=== PATIENT | male | born 1970 | race Two or more races ===

== ENCOUNTER 2017-01-15 17:27 | Emergency (ER) | payer OTHER ==
[2017-01-15 17:54] VITALS: BP 157/90
[2017-01-15] MEDS ORDERED: Penicillin VK TAB* 250 MG PO ONE (18:06)
[2017-01-15] MEDS ORDERED: HYDROcodone/ACETAMIN 5-325 MG* 1 TAB PO ONE (18:06)
--- NOTE | 2017-01-15 18:12 | UC ---
Dental HPI - HPI Summary HPI Summary: 46 yo male with left upper molar pain and gum swelling x 3 days no f/c has appt to see dentist in one week sent here for pain management - History of Current Complaint Chief Complaint: UCDentalProblem Stated Complaint: TOOTH PAIN Time Seen by Provider: 01/15/17 17:49 Hx Obtained From: Patient Onset/Duration: Sudden Onset Severity: Severe Pain Intensity: 9 Pain Scale Used: 0-10 Numeric Aggravating: Heat, Cold, Chewing Alleviating: Nothing Related History: Previous Dental Care on Same Tooth, Swelling - Allergies/Home Medications Allergies/Adverse Reactions: Allergies Allergy/AdvReac Type Severity Reaction Status Date / Time No Known Allergies Allergy Verified 01/15/17 17:54 Home Medications: Home Medications Clonazepam [Clonazepam Odt] 3 mg PO BEDTIME 01/15/17 [History Confirmed 01/15/17 ] Methylphenidate HCl [Ritalin] 1 tab PO BID 01/15/17 [History Confirmed 01/15/17] PMH/Surg Hx/FS Hx/Imm Hx Endocrine History Of: Denies: Diabetes Cardiovascular History Of: Reports: Hypertension Denies: Pacemaker/ICD Respiratory History Of: Reports: Asthma GI/ History Of: Reports: Gastrointestinal Bleed Denies: Renal Disease Psychological History Of: Reports: Anxiety, Depression - Surgical History Surgical History: Yes Surgery Procedure, Year, and Place: Pilonidal cyst 2011 [facility] [place]. cyst removal from top of head 2004 [place]. right leg vein removal 07/22/2012 [facility] - Family History Known Family History: Positive: Cardiac Disease, Hypertension, Diabetes - Social History Alcohol Use: None Substance Use Type: None Smoking Status (MU): Light Every Day Tobacco Smoker Amount Used/How Often: 2 cig/day Household Exposure Type: Cigarettes Review of Systems Constitutional: Negative Skin: Negative Eyes: Negative ENT: Dental Pain Respiratory: Negative Cardiovascular: Negative Gastrointestinal: Negative Genitourinary: Negative Motor: Negative Neurovascular: Negative Musculoskeletal: Negative Neurological: Negative Psychological: Negative All Other Systems Reviewed And Are Negative: Yes Physical Exam Triage Information Reviewed: Yes Appearance: Well-Appearing, Well-Nourished, Pain Distress Vital Signs: Initial Vital Signs Temp 98.9 F 01/15/17 17:49 Pulse 100 01/15/17 17:49 Resp 18 01/15/17 17:49 BP 157/90 01/15/17 17:49 Pulse Ox 96 01/15/17 17:49 Vital Signs Reviewed: Yes Eyes: Positive: Conjunctiva Clear ENT: Positive: Normal ENT inspection, Hearing grossly normal. Negative: Nasal congestion, Nasal drainage, TMs normal, Tonsillar swelling, Tonsillar exudate, Trismus, Muffled/hoarse voice Dental: Positive: Other: - see image Neck: Positive: Supple, Nontender, No Lymphadenopathy Respiratory: Positive: Lungs clear, Normal breath sounds, No respiratory distress, No accessory muscle use Cardiovascular: Positive: RRR, No Murmur, Pulses Normal Neurological: Positive: Alert Psychological Exam: Normal Skin Exam: Normal Dental Complaint Course/Dx - Differential Dx/Diagnosis Provider Diagnoses: dental abscess Discharge - Discharge Plan Condition: Stable Disposition: HOME Prescriptions: HYDROcodone/ACETAMIN 5-325 MG* [[place] 5-325 TAB*] 1 tab PO Q4H PRN #15 tab MDD 6 PRN Reason: Pain Penicillin VK TAB 500 MG(NF) [Penicillin VK 500 mg Tab(NF)] 500 mg PO QID #28 tab Patient Education Materials: Dental Abscess (ED) Referrals: Kenneth Bowie MD [Primary Care Provider] - Additional Instructions: If symptoms worsen I suggest you go to the ER Hold off on taking anymore ibuprofen In a day or two you can take 600mg 4x day with food as needed for pain see dentist as planned Images Dental: 1 - gum swollen/percussion tenderness
== END 2017-01-15 18:40 | disposition home or self-care (01) ==
LOC: UCEAST 17:27
DX: K04.7 Periapical abscess without sinus (principal); I10 Essential (primary) hypertension; J45.909 Unspecified asthma, uncomplicated; F41.9 Anxiety disorder, unspecified; F32.9 Major depressive disorder, single episode, unspecified; F17.210 Nicotine dependence, cigarettes, uncomplicated
CPT/HCPCS: 99212; A9270-GY; G0463

== ENCOUNTER 2017-01-22 14:40 | Emergency (ER) | payer OTHER ==
[2017-01-22 14:53] VITALS: BP 147/80
--- NOTE | 2017-01-22 15:26 | UC ---
UC Dental HPI - HPI Summary HPI Summary: complaint of dental pain that started 2 weeks ago tooth infected in upper left jaw broken tooth and started to get infection seen in [facility] 7 days ago and started on PCN and given norco /NSAIDS for pain had appt today but dentist was out of the office and made an appt for 02/01/17 took approx 1/2 course of Penicillin d/t rash that started 3 days after medication - rash is resolving - denies any difficulty breath or swelling in his throat took hydrocodone with some relief until rx ran out tooth is extremely painful and difficult to eat- drinking with a straw pain is constant throbbing stabbing pain taking acetaminophen without relief for 2 days - History of Current Complaint Chief Complaint: UCDentalProblem Stated Complaint: DENTAL ISSUE Time Seen by Provider: 01/22/17 15:03 Hx Obtained From: Patient - Allergies/Home Medications Allergies/Adverse Reactions: Allergies Allergy/AdvReac Type Severity Reaction Status Date / Time Penicillins Allergy Hives Verified 01/22/17 15:27 PMH/Surg Hx/FS Hx/Imm Hx Previously Healthy: Yes Endocrine History Of: Denies: Diabetes, Thyroid Disease Cardiovascular History Of: Reports: Hypertension Denies: Cardiac Disorders, Pacemaker/ICD Respiratory History Of: Reports: Asthma Denies: COPD GI/ History Of: Reports: Gastrointestinal Bleed Denies: Ulcer, Renal Disease Psychological History Of: Reports: Anxiety, Depression - Surgical History Surgical History: Yes Surgery Procedure, Year, and Place: Pilonidal cyst 2011 [facility] – [place]. cyst removal from top of head 2004 [place]. right leg vein removal 07/22/2012 [facility] - Family History Known Family History: Positive: Cardiac Disease, Hypertension, Diabetes - Social History Occupation: Employed Full-time Lives: With Family Alcohol Use: None Substance Use Type: None Smoking Status (MU): Light Every Day Tobacco Smoker Amount Used/How Often: 2 cig/day Household Exposure Type: Cigarettes Review of Systems Constitutional: Negative Skin: Negative Eyes: Negative ENT: Dental Pain Respiratory: Negative Cardiovascular: Negative Gastrointestinal: Negative Genitourinary: Negative Motor: Negative Neurovascular: Negative Musculoskeletal: Negative Neurological: Headache Psychological: Negative All Other Systems Reviewed And Are Negative: Yes Physical Exam Triage Information Reviewed: Yes Appearance: Well-Nourished, Pain Distress, Obese Vital Signs: Initial Vital Signs Temp 98.2 F 01/22/17 14:46 Pulse 84 01/22/17 14:46 Resp 16 01/22/17 14:46 BP 147/80 01/22/17 14:46 Pulse Ox 97 01/22/17 14:46 Vital Signs Reviewed: Yes Eyes: Positive: Conjunctiva Clear ENT: Positive: Pharynx normal, TMs normal. Negative: Nasal congestion Dental: Positive: Percussion Tenderness @ - 16, Gross Decay/Caries @ - 16, Cervical Lymphadenopathy Neck: Positive: Supple Respiratory: Positive: Lungs clear, Normal breath sounds, No respiratory distress Cardiovascular: Positive: RRR, No Murmur, Pulses Normal Abdomen Description: Positive: Nontender, Soft Bowel Sounds: Positive: Present Musculoskeletal: Positive: No Edema Neurological: Positive: Alert Psychological Exam: Normal Skin: Positive: Other - scattered erythemoatous rash accross back torse and arms Dental Complaint Course/Dx - Course Course Of Treatment: exam completed. will start clindamycin and norco/NSAIDS for paincontrol until infection starts to resolve- has dental appt on 02/01/17. discussed calling to see if he can get a appt with dental provider sooner. will treat rash with benadryl to reduce itching. if pain worsenes or he gets a fever he was indstructed to be seen in the ED - Differential Dx/Diagnosis Differential Diagnosis/Dx: Dental Abscess, Dental Caries Provider Diagnoses: dental infection Discharge - Discharge Plan Condition: Stable Disposition: HOME Prescriptions: Clindamycin Cap(NF) [Cleocin 300 mg Cap(NF)] 300 mg PO TID #30 cap HYDROcodone/ACETAMIN 5-325 MG* [[place] 5-325 TAB*] 2 tab PO Q6H PRN #18 tab MDD 6 PRN Reason: Pain (Dental) Ibuprofen TAB* [Motrin TAB* 800 MG] 800 mg PO Q8H PRN #30 tab PRN Reason: Pain (Dental) diPHENhydraMINE PO* [Benadryl PO 50 MG CAP*] 50 mg PO TID PRN #30 cap PRN Reason: Itching Patient Education Materials: Dental Abscess (ED) Referrals: Kenneth Bowie MD [Primary Care Provider] - Additional Instructions: Please take antibiotic and benadryl as directed Increase fluids and rest Take pain medication as prescribed then start ibuprofen as directed Keep dental appt but call tomorrow to see if you can get an appt sooner Please review your discharge instructions. If your symptoms do not improve please proceed to the emergency department for further evaluation Your blood pressure is elevated. Please contact your primary care provider within 1 day -4 weeks for further evaluation
[2017-01-22] MEDS ORDERED: HYDROcodone/ACETAMIN 5-325 MG* 1 TAB PO ONE (15:31)
== END 2017-01-22 15:58 | disposition home or self-care (01) ==
LOC: UCEAST 14:40
DX: K04.7 Periapical abscess without sinus (principal); K02.9 Dental caries, unspecified; I10 Essential (primary) hypertension; J45.909 Unspecified asthma, uncomplicated; F17.210 Nicotine dependence, cigarettes, uncomplicated; K21.9 Gastro-esophageal reflux disease without esophagitis
CPT/HCPCS: 99212; G0463

== ENCOUNTER 2017-04-23 14:58 | Emergency (ER) | payer MEDICARE, MEDICAID | END 2017-04-23 15:45 | disposition left against medical advice (07) | LOC: UCEAST 14:58 | DX: M54.2 Cervicalgia (principal); Z53.21 Procedure and treatment not carried out due to patient leaving prior to being seen by health care provider ==

== ENCOUNTER 2017-04-23 21:33 | Emergency (ER) | payer OTHER | END 2017-04-23 21:34 | disposition left against medical advice (07) | LOC: UCEAST 21:33 | DX: Z53.21 Procedure and treatment not carried out due to patient leaving prior to being seen by health care provider (principal) ==

== ENCOUNTER 2017-04-25 16:29 | Emergency (ER) | payer MEDICARE, MEDICAID ==
[2017-04-25] MEDS ORDERED: Ondansetron INJ* 2 MG/ML VIAL IV ONE (16:56)
[2017-04-25] MEDS ORDERED: Dexamethasone IV* 4 MG/ML 1 ML (4 MG) IV SLOW PU ONE (16:56)
[2017-04-25] MEDS ORDERED: Morphine INJ* 4 MG/ML 1 ML SYRINGE IV ONE (16:56)
[2017-04-25] MEDS ORDERED: Ketorolac INJ* 30 MG/ML 1 ML VIAL IV PUSH ONE (16:56)
--- NOTE | 2017-04-25 17:59 | RAD ---
HISTORY: Left shoulder pain COMPARISONS: None VIEWS: 4, Frontal internal rotation, external rotation, outlet, and axillary views of the left shoulder FINDINGS: BONE DENSITY: Normal. BONES: There is no displaced fracture. 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 SOFT TISSUES: Unremarkable. OTHER FINDINGS: None. IMPRESSION: NO ACUTE OSSEOUS INJURY. IF SYMPTOMS PERSIST, RECOMMEND REPEAT IMAGING.
--- NOTE | 2017-04-25 18:00 | RAD ---
HISTORY: Upper chest pain COMPARISONS: None VIEWS: 4: Frontal dual-energy and lateral views of the chest. FINDINGS: CARDIOMEDIASTINAL SILHOUETTE: The cardiomediastinal silhouette is normal. SOLEDAD: The soledad are normal. PLEURA: The costophrenic angles are sharp. No pleural abnormalities are noted. LUNG PARENCHYMA: The lungs are clear. ABDOMEN: The upper abdomen is clear. There is no subphrenic gas. BONES AND SOFT TISSUES: No bone or soft tissue abnormalities are noted. OTHER: None. IMPRESSION: NO ACTIVE CARDIOPULMONARY DISEASE.
[2017-04-25 18:52] VITALS: BP 136/74
--- NOTE | 2017-04-25 18:56 | ED ---
Tad Dent Alfonso, scribed for Kenneth Mane MD on 04/25/17 at 1701 . Complex/Multi-Sys Presentation - HPI Summary HPI Summary: This patient is a 46 year old M BIBA to [facility] with a chief complaint of left shoulder pain since two days ago. Pt rates the pain 9/10 in severity. Symptoms aggravated by touch and alleviated by nothing. Pt reports cough, near syncope, and insomnia. PMHx of HTN, low back pain, anxiety, and depression. - History Of Current Complaint Chief Complaint: EDExtremityUpper Time Seen by Provider: 04/25/17 16:45 Hx Obtained From: Patient Onset/Duration: Sudden Onset, Lasting Days - 2, Still Present Timing: Constant Severity Currently: Severe Severity Initially: Severe Location: Pain At: - Left shoulder pain Aggravating Factor(s): Touch Alleviating Factor(s): Nothing. Associated Signs And Symptoms: Positive: Other - Positive cough, near syncope, and insomnia - Allergies/Home Medications Allergies/Adverse Reactions: Allergies Allergy/AdvReac Type Severity Reaction Status Date / Time Penicillins Allergy Hives Verified 01/22/17 15:27 PMH/Surg Hx/FS Hx/Imm Hx Endocrine/Hematology History: Denies: Hx Diabetes, Hx Thyroid Disease Cardiovascular History: Reports: Hx Hypertension, Other Cardiovascular Problems/ Disorders - varicose veins Denies: Hx Pacemaker/ICD Respiratory History: Reports: Hx Asthma, Hx Sleep Apnea - using CPAP Denies: Hx Chronic Obstructive Pulmonary Disease (COPD) GI History: Reports: Hx Gastroesophageal Reflux Disease, Hx Gastrointestinal Bleed Denies: Hx Ulcer History: Denies: Hx Dialysis, Hx Renal Disease Musculoskeletal History: Reports: Hx Back Problems - low back pain Sensory History: Reports: Hx Hearing Problem Denies: Hx Hearing Aid Neurological History: Reports: Hx Headaches Psychiatric History: Reports: Hx Anxiety, Hx Depression, Other Psychiatric Issues/Disorders - insomnia Denies: Hx Panic Disorder - Surgical History Surgery Procedure, Year, and Place: Pilonidal cyst 2011 [facility] [place]. cyst removal from top of head 2004 [place]. right leg vein removal 07/22/2012 [facility] Infectious Disease History: Denies: Hx Clostridium Difficile, Hx Hepatitis, Hx Human Immunodeficiency Virus (HIV), Hx of Known/Suspected MRSA, Hx Shingles, Hx Tuberculosis, Hx Known/ Suspected VRE, Hx Known/Suspected VRSA, History Other Infectious Disease, Traveled Outside the [place] in Last 30 Days - Family History Known Family History: Positive: Cardiac Disease, Hypertension, Diabetes - Social History Alcohol Use: None Substance Use Type: Reports: None Smoking Status (MU): Light Every Day Tobacco Smoker Amount Used/How Often: 2 cig/day Review of Systems Positive: Cough Positive: Other - Positive left shoulder pain Neurological: Other - Positive insomnia and near syncope. All Other Systems Reviewed And Are Negative: Yes Physical Exam - Summary Physical Exam Summary: VITAL SIGNS: Reviewed. GENERAL: Patient is a well-developed and nourished male who is lying comfortable in the stretcher. Patient is not in any acute respiratory distress. HEAD AND FACE: No signs of trauma. No ecchymosis, hematomas or skull depressions. No sinus tenderness. EYES: PERRLA, EOMI x 2, No injected conjunctiva, no nystagmus. EARS: Hearing grossly intact. Ear canals and tympanic membranes are within normal limits. MOUTH: Oropharynx within normal limits. NECK: Left upper paraspinal muscle tenderness. Left external sternocleidomastoid and trapezius tenderness. CHEST: Symmetric, no tenderness at palpation LUNGS: Clear to auscultation bilaterally. No wheezing or crackles. CVS: Regular rate and rhythm, S1 and S2 present, no murmurs or gallops appreciated. ABDOMEN: Soft, non-tender. No signs of distention. No rebound no guarding, and no masses palpated. Bowel sounds are normal. EXTREMITIES: FROM in all major joints, no edema, no cyanosis or clubbing. NEURO: Alert and oriented x 3. No acute neurological deficits. Speech is normal and follows commands. SKIN: Dry and warm Triage Information Reviewed: Yes Vital Signs On Initial Exam: Initial Vitals Temp Pulse Resp BP Pulse Ox 98.4 F 90 22 154/99 97 04/25/17 16:40 04/25/17 16:40 04/25/17 16:40 04/25/17 16:40 04/25/17 16:40 Vital Signs Reviewed: Yes Diagnostics - Vital Signs Vital Signs Temp Pulse Resp BP Pulse Ox 04/25/17 16:40 98.4 F 90 22 154/99 97 - Laboratory Lab Statement: Any lab studies that have been ordered have been reviewed, and results considered in the medical decision making process. - Radiology CXR Radiology Interpretation Completed By: Radiologist - NO ACTIVE CARDIOPULMONARY DISEASE. Shoulder X-Ray Radiology Interpretation Completed By: Radiologist - NO ACUTE OSSEOUS INJURY. IF SYMPTOMS PERSIST, RECOMMEND REPEAT IMAGING. Re-Evaluation - Re-Evaluation First Eval Re-Evaluation Time: 18:01 Comment: Pt is feeling a lot better. Complex Multi-Symp Course/Dx Course Of Treatment: This patient is a 46 year old M BIBA to [facility] with a chief complaint of left shoulder pain since two days ago. Pt rates the pain 9/10 in severity. Symptoms aggravated by touch and alleviated by nothing. Pt reports cough, near syncope, and insomnia. PMHx of HTN, low back pain, anxiety, and depression. Assessment/Plan: Shoulder X-Ray reveals NO ACUTE OSSEOUS INJURY. IF SYMPTOMS PERSIST, RECOMMEND REPEAT IMAGING. CXR reveals NO ACTIVE CARDIOPULMONARY DISEASE. I believe his symptoms are secondary to a muscle spasm. Patient was given Decadron, Toradol, morphine, and Zofran for the pain. After this medication his symptoms improved. Pain is 2/10 in severity and he is able to move his neck and shoulders with full ROM. Patient will be discharged home with PCP follow up. Patient is hemodynamically stable and A&Ox3. Patient denies any CP, SOB or palitations. I discussed all the findings and test results with the patient. Patient was instructed to return to the emergency room immediately if any of the symptoms return or worsens. Plan of care was discussed with the patient and understands and agrees. All questions were answered at patient satisfaction. There were no further complaints or concerns. Lung exam before discharge: CTA B/L. Good air exchange. No wheezing or crackles heard. CVS: S1 and S2 present. No murmurs appreciated. Patient is alert and oriented x 3. Patient is hemodynamically stable. Patient will be discharged home with follow up PCP in the next 2-3 days - Diagnoses Provider Diagnoses: Torticollis Discharge - Discharge Plan Condition: Stable Disposition: HOME Prescriptions: Ibuprofen TAB* [Motrin TAB* 800 MG] 800 mg PO ONCE PRN #30 tab PRN Reason: Pain Methocarbamol [Robaxin-750 MG TAB] 750 mg PO TID #12 tab Oxycodone/AS[place] 5/325 (NF) [Percodan 5/325 (NF)] 1 tab PO Q6H PRN #10 tab MDD 4 PRN Reason: Pain Patient Education Materials: Spasmodic Torticollis (ED) Referrals: Kenneth Bowie MD [Primary Care Provider] - 3 Days The documentation as recorded by the Tad connor Alfonso accurately reflects the service I personally performed and the decisions made by , Kenneth Mane MD.
== END 2017-04-25 18:51 | disposition home or self-care (01) ==
LOC: ED 16:29
DX: M43.6 Torticollis (principal); R05 Cough; R55 Syncope and collapse; G47.00 Insomnia, unspecified; I10 Essential (primary) hypertension; J45.909 Unspecified asthma, uncomplicated; K21.9 Gastro-esophageal reflux disease without esophagitis; M54.5 Low back pain; F41.9 Anxiety disorder, unspecified; F32.9 Major depressive disorder, single episode, unspecified; Z88.0 Allergy status to penicillin; F17.210 Nicotine dependence, cigarettes, uncomplicated
CPT/HCPCS: 71020; 99282; J1100; J1885; J2270; J2405

== ENCOUNTER → 2017-05-13 00:49 | Emergency (ER) | payer MEDICARE, MEDICAID ==
[2017-05-13 01:05] VITALS: BP 170/101
[2017-05-13 01:28] LABS: Hematocrit 44 % (42-52); Hemoglobin 14.2 g/dl (14.0-18.0); Mean Corpuscular HGB Conc 33 g/dl (31-36); Mean Corpuscular Hemoglobin 28 pg (27-31); Mean Corpuscular Volume 86 fL (80-94); Mean Platelet Volume 8 um3 (7.4-10.4); Red Blood Count 5.05 10^6/ul (4.0-5.4); Red Cell Distribution Width 15 % (10.5-15); White Blood Count 13.4 10^3/ul (3.5-10.8)
[2017-05-13 01:41] LABS: Urine Bilirubin Negative (Negative); Urine Glucose Negative (Negative); Urine Nitrite Negative (Negative)
[2017-05-13 01:43] LABS: Acetaminophen < 15 mcg/mL; Alcohol < 10 mg/dL (<10); Salicylate < 2.50 mg/dL (<30)
[2017-05-13 01:44] LABS: ALT 18 U/L (7-52); AST 14 U/L (13-39); Albumin 4.2 g/dL (3.2-5.2); Alkaline Phosphatase 66 U/L (34-104); Anion Gap 7 mmol/L (2-11); BUN/Creatinine Ratio 13.5 (8-20); Blood Urea Nitrogen 12 mg/dL (6-24); CO2 Carbon Dioxide 23 mmol/L (22-32); Calcium 9.1 mg/dL (8.6-10.3); Chloride 108 mmol/L (101-111); EGFR African American 118.9 (>60); EGFR Non-African American 92.4 (>60); Globulin 3.1 g/dL (2-4); Glucose 112 mg/dL (70-100); Potassium 3.4 mmol/L (3.5-5.0); Sodium 138 mmol/L (133-145); Total Protein 7.3 g/dL (6.4-8.9)
[2017-05-13 01:46] LABS: Benzodiazepine Urine Screen Presumptive Positive (None Detect)
[2017-05-13 01:54] LABS: TSH (Thyroid Stimulating Horm) 0.41 mcIU/mL (0.34-5.60)
--- NOTE | 2017-05-13 06:17 | ED ---
I, Oh,Sylvia, scribed for Nasra Bassett MD on 05/13/17 at 0121 . 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 Pt was with his friend mayur and made joke that he "will drive off the bridge". 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 Pt admits to use of crack cocaine tonkyler. He is currently calm and cooperative. PMHx includes HTN and asthma. Pt lives with uncle and cousin. FHx is negative for depression. - History Of Current Complaint Chief Complaint: EDMentalHealth Time Seen by Provider: 05/13/17 01:08 Hx Obtained From: Patient, Medical Records Aggravating Factor(s): Nothing Alleviating Factor(s): Nothing Associated Signs And Symptoms: Positive: Negative - Allergies/Home Medications Allergies/Adverse Reactions: Allergies Allergy/AdvReac Type Severity Reaction Status Date / Time Penicillins Allergy Hives Verified 05/13/17 01:29 PMH/Surg Hx/FS Hx/Imm Hx Endocrine/Hematology History: Denies: Hx Diabetes, Hx Thyroid Disease Cardiovascular History: Reports: Hx Hypertension, Other Cardiovascular Problems/ Disorders - varicose veins Denies: Hx Pacemaker/ICD Respiratory History: Reports: Hx Asthma, Hx Sleep Apnea - using CPAP Denies: Hx Chronic Obstructive Pulmonary Disease (COPD) GI History: Reports: Hx Gastroesophageal Reflux Disease, Hx Gastrointestinal Bleed Denies: Hx Ulcer History: Denies: Hx Dialysis, Hx Renal Disease Musculoskeletal History: Reports: Hx Back Problems - low back pain Sensory History: Reports: Hx Hearing Problem Denies: Hx Hearing Aid Neurological History: Reports: Hx Headaches Psychiatric History: Reports: Hx Anxiety, Hx Depression, Other Psychiatric Issues/Disorders - insomnia Denies: Hx Panic Disorder - Surgical History Surgery Procedure, Year, and Place: Pilonidal cyst 2012 [facility] [place]. cyst removal from top of head 2004 [place]. right leg vein removal 07/22/2012 [facility] Infectious Disease History: No Infectious Disease History: Denies: Hx Clostridium Difficile, Hx Hepatitis, Hx Human Immunodeficiency Virus (HIV), Hx of Known/Suspected MRSA, Hx Shingles, Hx Tuberculosis, Hx Known/ Suspected VRE, Hx Known/Suspected VRSA, History Other Infectious Disease, Traveled Outside the [place] in Last 30 Days - Family History Known Family History: Positive: Cardiac Disease, Hypertension, Diabetes - Social History Alcohol Use: None Substance Use Type: Reports: Cocaine Smoking Status (MU): Light Every Day Tobacco Smoker Amount Used/How Often: 2 cig/day Review of Systems Negative: Fever Positive: Other - Positive statement for "joking that I will drive off the bridge" All Other Systems Reviewed And Are Negative: Yes Physical Exam Triage Information Reviewed: Yes Vital Signs On Initial Exam: Initial Vitals Temp Pulse Resp BP Pulse Ox 98.5 F 87 18 170/101 96 05/13/17 01:04 05/13/17 01:04 05/13/17 01:04 05/13/17 01:04 05/13/17 01:04 Vital Signs Reviewed: Yes Appearance: Positive: Well-Appearing, No Pain Distress Skin: Positive: Warm, Skin Color Reflects Adequate Perfusion, Dry Head/Face: Positive: Normal Head/Face Inspection Eyes: Positive: EOMI, LA Neck: Positive: Supple, Nontender Respiratory/Lung Sounds: Positive: Breath Sounds Present. Negative: Rales, Rhonchi Cardiovascular: Positive: RRR, Pulses are Symmetrical in both Upper and Lower Extremities. Negative: Murmur, Rub, Other - gallops Abdomen Description: Positive: Nontender, Soft Musculoskeletal: Positive: Strength/ROM Intact Neurological: Positive: Sensory/Motor Intact, Alert, Oriented to Person Place, Time Psychiatric: Positive: Affect/Mood Appropriate AVPU Assessment: Alert - Carla Coma Scale Coma Scale Total: 15 Diagnostics - Vital Signs Vital Signs Temp Pulse Resp BP Pulse Ox 05/13/17 01:04 98.5 F 87 18 170/101 96 - Laboratory Lab Results: Lab Results 05/13/17 05/13/17 05/13/17 Range/Units 01:15 01:15 01:15 WBC 13.4 H (3.5-10.8) 10^3/ul RBC 5.05 (4.0-5.4) 10^6/ul Hgb 14.2 (14.0-18.0) g/dl Hct 44 (42-52) % MCV 86 (80-94) fL MCH 28 (27-31) pg MCHC 33 (31-36) g/dl RDW 15 (10.5-15) % Plt Count 207 (150-450) 10^3/ul MPV 8 (7.4-10.4) um3 Neut % (Auto) 73.9 (38-83) % Lymph % (Auto) 17.8 L (25-47) % Pickett % (Auto) 6.2 (1-9) % Eos % (Auto) 1.1 (0-6) % Baso % (Auto) 1.0 (0-2) % Absolute Neuts (auto) 9.9 H (1.5-7.7) 10^3/ul Absolute Lymphs (auto) 2.4 (1.0-4.8) 10^3/ul Absolute Monos (auto) 0.8 (0-0.8) 10^3/ul Absolute Eos (auto) 0.1 (0-0.6) 10^3/ul Absolute Basos (auto) 0.1 (0-0.2) 10^3/ul Absolute Nucleated RBC 0 10^3/ul Nucleated RBC % 0 Sodium 138 (133-145) mmol/L Potassium 3.4 L (3.5-5.0) mmol/L Chloride 108 (101-111) mmol/L Carbon Dioxide 23 (22-32) mmol/L Anion Gap 7 (2-11) mmol/L BUN 12 (6-24) mg/dL Creatinine 0.89 (0.67-1.17) mg/dL Est GFR ( Amer) 118.9 (>60) Est GFR (Non-Af Amer) 92.4 (>60) BUN/Creatinine Ratio 13.5 (8-20) Glucose 112 H (70-100) mg/dL Calcium 9.1 (8.6-10.3) mg/dL Total Bilirubin 0.40 (0.2-1.0) mg/dL AST 14 (13-39) U/L ALT 18 (7-52) U/L Alkaline Phosphatase 66 (34-104) U/L Total Protein 7.3 (6.4-8.9) g/dL Albumin 4.2 (3.2-5.2) g/dL Globulin 3.1 (2-4) g/dL Albumin/Globulin Ratio 1.4 (1-3) TSH 0.41 (0.34-5.60) mcIU/mL Urine Color Yellow Urine Appearance Clear Urine pH 5.0 (5-9) Ur Specific [place] 1.027 (1.010-1.030) Urine Protein Negative (Negative) Urine Ketones Negative (Negative) Urine Blood Negative (Negative) Urine Nitrate Negative (Negative) Urine Bilirubin Negative (Negative) Urine Urobilinogen Negative (Negative) Ur Leukocyte Esterase Negative (Negative) Urine Glucose Negative (Negative) Salicylates < 2.50 (<30) mg/dL Urine Opiates Screen (None Detect) Acetaminophen < 15 mcg/mL Ur Barbiturates Screen (None Detect) Ur Phencyclidine Scrn (None Detect) Ur Amphetamines Screen (None Detect) U Benzodiazepines Scrn (None Detect) Urine Cocaine Screen (None Detect) U Cannabinoids Screen (None Detect) Serum Alcohol < 10 (<10) mg/dL 05/13/17 Range/Units 01:15 WBC (3.5-10.8) 10^3/ul RBC (4.0-5.4) 10^6/ul Hgb (14.0-18.0) g/dl Hct (42-52) % MCV (80-94) fL MCH (27-31) pg MCHC (31-36) g/dl RDW (10.5-15) % Plt Count (150-450) 10^3/ul MPV (7.4-10.4) um3 Neut % (Auto) (38-83) % Lymph % (Auto) (25-47) % Pickett % (Auto) (1-9) % Eos % (Auto) (0-6) % Baso % (Auto) (0-2) % Absolute Neuts (auto) (1.5-7.7) 10^3/ul Absolute Lymphs (auto) (1.0-4.8) 10^3/ul Absolute Monos (auto) (0-0.8) 10^3/ul Absolute Eos (auto) (0-0.6) 10^3/ul Absolute Basos (auto) (0-0.2) 10^3/ul Absolute Nucleated RBC 10^3/ul Nucleated RBC % Sodium (133-145) mmol/L Potassium (3.5-5.0) mmol/L Chloride (101-111) mmol/L Carbon Dioxide (22-32) mmol/L Anion Gap (2-11) mmol/L BUN (6-24) mg/dL Creatinine (0.67-1.17) mg/dL Est GFR ( Amer) (>60) Est GFR (Non-Af Amer) (>60) BUN/Creatinine Ratio (8-20) Glucose (70-100) mg/dL Calcium (8.6-10.3) mg/dL Total Bilirubin (0.2-1.0) mg/dL AST (13-39) U/L ALT (7-52) U/L Alkaline Phosphatase (34-104) U/L Total Protein (6.4-8.9) g/dL Albumin (3.2-5.2) g/dL Globulin (2-4) g/dL Albumin/Globulin Ratio (1-3) TSH (0.34-5.60) mcIU/mL Urine Color Urine Appearance Urine pH (5-9) Ur Specific [place] (1.010-1.030) Urine Protein (Negative) Urine Ketones (Negative) Urine Blood (Negative) Urine Nitrate (Negative) Urine Bilirubin (Negative) Urine Urobilinogen (Negative) Ur Leukocyte Esterase (Negative) Urine Glucose (Negative) Salicylates (<30) mg/dL Urine Opiates Screen None detected (None Detect) Acetaminophen mcg/mL Ur Barbiturates Screen None detected (None Detect) Ur Phencyclidine Scrn None detected (None Detect) Ur Amphetamines Screen Presumptive positive H (None Detect) U Benzodiazepines Scrn Presumptive positive H (None Detect) Urine Cocaine Screen Presumptive positive H (None Detect) U Cannabinoids Screen Presumptive positive H (None Detect) Serum Alcohol (<10) mg/dL Result Diagrams: 05/13/17 01:15 05/13/17 01:15 Lab Statement: Any lab studies that have been ordered have been reviewed, and results considered in the medical decision making process. Course/Dx - Course Course Of Treatment: Pt to be signed out to am attending - Differential Dx/Clinical Impression Provider Diagnosis: Suicidal behavior without attempted self-injury - Physician Notifications Patient Is Medically Stable For: Psych Evaluation - at 0207 AM Discharge - Discharge Plan Condition: Stable Disposition: OTHER Discharge Disposition Comment: to be determined The documentation as recorded by the Tello connor Soohyun accurately reflects the service I personally performed and the decisions made by me, Nasra Bassett MD.
--- NOTE | 2017-05-13 09:33 | ED ---
Tad Dent Alfonso, scribed for Kenneth Mane MD on 05/13/17 at 0904 . Progress - Progress Note Progress Note: This patient was signed out from Dr. Bassett, pending disposition, awaiting MHE. After MHE, Done by Dr. Allen he request for the patient to be discharged home with f/u as an outpatient for mental health. Patient's condition is stable and he will be discharged to home with Dx of adjustment disorder with depressed mood. - Consult/PCP Time Called: 02:36 Course/Dx - Diagnoses Provider Diagnoses: Adjustment disorder with depressed mood The documentation as recorded by the Tad connor Alfonso accurately reflects the service I personally performed and the decisions made by , Kenneth Maen MD.
== END ==
LOC: ED 00:49
DX: F43.21 Adjustment disorder with depressed mood (principal); F17.210 Nicotine dependence, cigarettes, uncomplicated; T14.91 Suicide attempt
CPT/HCPCS: 36415; 80053; 80307; 80320; 80329; 81003; 84443; 85025; 99284; G0480

== ENCOUNTER 2017-06-28 10:47 | Emergency (ER) | payer MEDICARE, MEDICAID ==
[2017-06-28] MEDS ORDERED: NS 0.9% 1000 ML* 1,000 ML IV ONE (11:34)
[2017-06-28] MEDS ORDERED: Ketorolac INJ* 30 MG/ML 1 ML VIAL IV ONE (11:34)
[2017-06-28 11:57] LABS: Hematocrit 41 % (42-52); Hemoglobin 13.7 g/dl (14.0-18.0); Mean Corpuscular HGB Conc 33 g/dl (31-36); Mean Corpuscular Hemoglobin 29 pg (27-31); Mean Corpuscular Volume 86 fL (80-94); Mean Platelet Volume 8 um3 (7.4-10.4); Red Blood Count 4.79 10^6/ul (4.0-5.4); Red Cell Distribution Width 14 % (10.5-15); White Blood Count 16.2 10^3/ul (3.5-10.8)
[2017-06-28 12:12] LABS: Albumin 3.8 g/dL (3.2-5.2); BUN/Creatinine Ratio 11.9 (8-20); C Reactive Protein 137.01 mg/L (< 5.00); Calcium 8.8 mg/dL (8.6-10.3); EGFR African American 102.7 (>60); EGFR Non-African American 79.9 (>60); Globulin 3.2 g/dL (2-4); Magnesium 2.1 mg/dL (1.9-2.7); Potassium 3.7 mmol/L (3.5-5.0)
--- NOTE | 2017-06-28 12:18 | RAD ---
INDICATION: LEFT lower quadrant abdominal pain which radiates to the back. Corresponding bruising without reported injury. COMPARISON: No relevant prior exams available on the [facility] PACS for comparison. TECHNIQUE: Multidetector CT images were obtained from the lung bases to the ischial tuberosities. Evaluation of the viscera is limited without IV contrast. Multiplanar reformation. REPORT: Unremarkable visualized inferior thorax. Unremarkable unenhanced liver, gallbladder, pancreas, spleen. Negative for CT abnormality of the upper GI, small bowel, retrocecal appendix. Centered at the diverticula there is perienteric inflammatory change at the mid descending colon at the paracolic gutter with potential few small foci of extra enteric gas as well as trace free fluid in the paracolic gutter. Additional scattered diverticula noted. Negative for hernias. 2 cm hypodense RIGHT adrenal nodule consistent with a benign lipid rich adenoma. Negative for urolithiasis or hydronephrosis. No conspicuous focal renal lesions evident. Mild LEFT perinephric fat stranding is likely reactive secondary to the primary inflammatory process at the descending colon. Unremarkable ureters and largely decompressed urinary bladder limiting assessment. Symmetric seminal vesicles. Negative for lymphadenopathy. Normal diameter abdominal aorta and iliac arteries. Physiologic distention of the IVC. Negative for suspicious osseous lesions. Negative for soft tissue plane edema or hematoma. IMPRESSION: The constellation of findings is most consistent with acute diverticulitis at the descending colon with suggestion of microperforation with a few adjacent foci of extra enteric gas and trace free fluid. No perienteric abscess collection evident. Negative for resulting bowel obstruction.
[2017-06-28] MEDS ORDERED: Morphine INJ* 4 MG/ML 1 ML CARPUJECT IV ONE (12:46)
[2017-06-28] MEDS ORDERED: Ondansetron INJ* 2 MG/ML VIAL IV ONE (12:46)
[2017-06-28] MEDS ORDERED: Ciprofloxacin 400MG IVPREMIX(* 400 MG/200 ML BAG IVPB ONE (12:46)
[2017-06-28] MEDS ORDERED: metroNIDAZOLE TAB* 250 MG PO ONE (12:46)
[2017-06-28 13:27] LABS: Urine Nitrite Negative (Negative)
[2017-06-28 13:28] LABS: Urine Bilirubin Negative (Negative); Urine Glucose Negative (Negative)
[2017-06-28 13:58] VITALS: BP 114/72
--- NOTE | 2017-06-28 18:35 | ED ---
Dontae Dent Angela, scribed for Kenneth Mane MD on 06/28/17 at 1131 . Abdominal Pain/Male - HPI Summary HPI Summary: This pt is a 46 y/o male presenting [facility] c/o left lower back pain that radiates to his LLQ. Pt denies any trauma to the area but reports ecchymosis. Pt notes that the last thing he ate was a chicken pizza. He states his pain is aggravated by movement and coughing. Pt denies LE numbness, tingling, or weakness, fever, chills, nausea, vomiting. - History of Current Complaint Chief Complaint: EDAbdPain Stated Complaint: LT BACK/SIDE PAIN/BRUISES Time Seen by Provider: 06/28/17 11:29 Hx Obtained From: Patient Onset/Duration: Sudden Onset Pain Intensity: 10 Pain Scale Used: 0-10 Numeric Location: Flank Radiates: Yes Radiates to: Back Aggravating Factor(s): Movement, Other: - coughing Associated Signs And Symptoms: Positive: Back Pain. Negative: Fever, Chest Pain , Dizzy, Nausea - Allergies/Home Medications Allergies/Adverse Reactions: Allergies Allergy/AdvReac Type Severity Reaction Status Date / Time Penicillins Allergy Hives Verified 05/13/17 01:29 PMH/Surg Hx/FS Hx/Imm Hx Endocrine/Hematology History: Denies: Hx Diabetes, Hx Thyroid Disease Cardiovascular History: Reports: Hx Hypertension, Other Cardiovascular Problems/ Disorders - varicose veins Denies: Hx Pacemaker/ICD Respiratory History: Reports: Hx Asthma, Hx Sleep Apnea - using CPAP Denies: Hx Chronic Obstructive Pulmonary Disease (COPD) GI History: Reports: Hx Gastroesophageal Reflux Disease, Hx Gastrointestinal Bleed Denies: Hx Ulcer History: Denies: Hx Dialysis, Hx Renal Disease Musculoskeletal History: Reports: Hx Back Problems - low back pain Sensory History: Reports: Hx Hearing Problem Denies: Hx Hearing Aid Neurological History: Reports: Hx Headaches Psychiatric History: Reports: Hx Anxiety, Hx Depression, Other Psychiatric Issues/Disorders - insomnia Denies: Hx Eating Disorder, Hx Panic Disorder - Surgical History Surgery Procedure, Year, and Place: Pilonidal cyst 2011 [facility]. cyst removal from top of head 2004 [place]. right leg vein removal 07/22/2012 [facility] Infectious Disease History: No Infectious Disease History: Denies: Hx Clostridium Difficile, Hx Hepatitis, Hx Human Immunodeficiency Virus (HIV), Hx of Known/Suspected MRSA, Hx Shingles, Hx Tuberculosis, Hx Known/ Suspected VRE, Hx Known/Suspected VRSA, History Other Infectious Disease, Traveled Outside the [place] in Last 30 Days - Family History Known Family History: Positive: Cardiac Disease, Hypertension, Diabetes - Social History Alcohol Use: None Substance Use Type: Reports: Cocaine Smoking Status (MU): Light Every Day Tobacco Smoker Amount Used/How Often: 2 cig/day Review of Systems Negative: Fever, Chills Positive: Abdominal Pain. Negative: Vomiting, Diarrhea, Nausea Positive: Other - back pain Negative: Headache, Weakness, Paresthesia, Numbness All Other Systems Reviewed And Are Negative: Yes Physical Exam - Summary Physical Exam Summary: VITAL SIGNS: Reviewed. GENERAL: Patient is a well-developed and nourished male who is lying comfortable in the stretcher. Patient is not in any acute respiratory distress. HEAD AND FACE: Normocephalic and atraumatic. EYES: PERRLA, EOMI x 2, No injected conjunctiva. EARS: Hearing grossly intact. Ear canals and tympanic membranes are WNL. MOUTH: Oropharynx within normal limits. NECK: Supple, trachea is midline, no adenopathy, no JVD. CHEST: Symmetric, no tenderness at palpation LUNGS: Clear to auscultation bilaterally. No wheezing or crackles. CVS: RRR, S1 and S2 present, no murmurs or gallops appreciated. ABDOMEN: Soft. No signs of distention. Positive bowel sounds. No rebound no guarding, and no masses palpated. No abdominal bruit or pulsations. There is left sided abdominal tenderness. There is left costovertebral angle tenderness. EXTREMITIES: FROM in all major joints, no edema, no cyanosis or clubbing. NEURO: Alert and oriented x 3. No acute neurological deficits. Speech is normal. SKIN: Dry and warm Triage Information Reviewed: Yes Vital Signs On Initial Exam: Initial Vitals Temp Pulse Resp BP Pulse Ox 98.1 F 94 18 134/80 97 06/28/17 10:48 06/28/17 10:48 06/28/17 10:48 06/28/17 10:48 06/28/17 10:48 Vital Signs Reviewed: Yes Diagnostics - Vital Signs Vital Signs Temp Pulse Resp BP Pulse Ox 06/28/17 10:48 98.1 F 94 18 134/80 97 - Laboratory Lab Results: Lab Results 06/28/17 06/28/17 06/28/17 Range/Units 11:45 11:45 12:15 WBC 16.2 H (3.5-10.8) 10^3/ul RBC 4.79 (4.0-5.4) 10^6/ul Hgb 13.7 L (14.0-18.0) g/dl Hct 41 L (42-52) % MCV 86 (80-94) fL MCH 29 (27-31) pg MCHC 33 (31-36) g/dl RDW 14 (10.5-15) % Plt Count 209 (150-450) 10^3/ul MPV 8 (7.4-10.4) um3 Neut % (Auto) 80.4 (38-83) % Lymph % (Auto) 9.7 L (25-47) % Sunflower % (Auto) 8.8 (1-9) % Eos % (Auto) 0.6 (0-6) % Baso % (Auto) 0.5 (0-2) % Absolute Neuts (auto) 13.0 H (1.5-7.7) 10^3/ul Absolute Lymphs (auto) 1.6 (1.0-4.8) 10^3/ul Absolute Monos (auto) 1.4 H (0-0.8) 10^3/ul Absolute Eos (auto) 0.1 (0-0.6) 10^3/ul Absolute Basos (auto) 0.1 (0-0.2) 10^3/ul Absolute Nucleated RBC 0 10^3/ul Nucleated RBC % 0 Sodium 139 (133-145) mmol/L Potassium 3.7 (3.5-5.0) mmol/L Chloride 106 (101-111) mmol/L Carbon Dioxide 26 (22-32) mmol/L Anion Gap 7 (2-11) mmol/L BUN 12 (6-24) mg/dL Creatinine 1.01 (0.67-1.17) mg/dL Est GFR ( Amer) 102.7 (>60) Est GFR (Non-Af Amer) 79.9 (>60) BUN/Creatinine Ratio 11.9 (8-20) Glucose 101 H (70-100) mg/dL Calcium 8.8 (8.6-10.3) mg/dL Magnesium 2.1 (1.9-2.7) mg/dL Total Bilirubin 1.00 (0.2-1.0) mg/dL AST 15 (13-39) U/L ALT 16 (7-52) U/L Alkaline Phosphatase 65 (34-104) U/L C-Reactive Protein 137.01 H (< 5.00) mg/L Total Protein 7.0 (6.4-8.9) g/dL Albumin 3.8 (3.2-5.2) g/dL Globulin 3.2 (2-4) g/dL Albumin/Globulin Ratio 1.2 (1-3) Lipase 12 (11.0-82.0) U/L Urine Color Jessica Urine Appearance Cloudy Urine pH 5 (5-9) Ur Specific [place] 1.035 H (1.010-1.030) Urine Protein Negative (Negative) Urine Ketones Negative (Negative) Urine Blood Negative (Negative) Urine Nitrate Negative (Negative) Urine Bilirubin Negative (Negative) Urine Urobilinogen Negative (Negative) Ur Leukocyte Esterase Negative (Negative) Urine Glucose Negative (Negative) Result Diagrams: 06/28/17 11:45 06/28/17 11:45 Lab Statement: Any lab studies that have been ordered have been reviewed, and results considered in the medical decision making process. - CT Abd/Pel CT CT Interpretation: Positive (See Comments) - IMPRESSION: The constellation of findings is most consistent with acute diverticulits at the descending colon with suggestion of microperforation with a few adjeacent foci of extra enteric gas and trace free fluid. No perienteric absces collection evident. Negative for resulting bowel obstruction. ED physician has reviewed this radiology report and agrees. CT Interpretation Completed By: Radiologist Re-Evaluation - Re-Evaluation First Eval Re-Evaluation Time: 12:45 Comment: I discussed the CT results with the pt. Abdominal Pain Fem Course/Dx - Course Assessment/Plan: This pt is a 46 y/o male presenting to [facility] c/o left lower back pain that radiates to his LLQ. Pt denies any trauma to the area but reports ecchymosis. Pt notes that the last thing he ate was a chicken pizza. He states his pain is aggravated by movement and coughing. Pt denies LE numbness, tingling, or weakness, fever, chills, nausea, vomiting. Test results without any significant abnormalities except for WBC 16.2 and CRP 137. Urinalysis is negative for UTI. Abdomen/pelvis CT reveals acute diverticulitis. In the ED course, the pt was given Ciprofloxacin, Flagyl, and morphine for the pain. After these medications his symptoms improved. Therefore, the pt will be discharged home with follow up from his PCP. Pt is hemodynamically stable, alert and oriented x3. - Diagnoses Differential Diagnosis/HQI/PQRI: Appendicitis, Bowel Obstruction, Constipation, Diverticulitis, Pancreatitis, Ureteral Stone, Urinary Tract Infection Provider Diagnoses: Acute diverticulitis Discharge - Discharge Plan Condition: Stable Disposition: HOME Prescriptions: Ciprofloxacin TAB* [Cipro 500 MG TAB*] 500 mg PO BID #20 tab Metronidazole [Flagyl 500 MG TAB] 500 mg PO TID #1 tab Oxycodone W/ Acetaminophen [Percocet 7.5-325 mg (NF)] 1 tab PO Q6H PRN #10 tab MDD 4 PRN Reason: Pain Patient Education Materials: Diverticulitis (ED) Referrals: Kenneth Bowie MD [Primary Care Provider] - Additional Instructions: Please follow up with your primary care physician. The documentation as recorded by the Dontae connor Angela accurately reflects the service I personally performed and the decisions made by Alhaji bruno Walter, MD.
== END 2017-06-28 13:57 | disposition home or self-care (01) ==
LOC: ED 10:47
DX: K57.92 Diverticulitis of intestine, part unspecified, without perforation or abscess without bleeding (principal); M54.9 Dorsalgia, unspecified; R10.9 Unspecified abdominal pain; F17.210 Nicotine dependence, cigarettes, uncomplicated
CPT/HCPCS: 36415; 74176; 80053; 81003; 83690; 83735; 85025; 86140; 96374; 96375; 99283; A9270-GY; J0744; J1885; J2270; J2405

== ENCOUNTER 2018-02-22 11:41 | Emergency (ER) | payer MEDICARE, MEDICAID ==
[2018-02-22 12:12] VITALS: BP 127/80
--- NOTE | 2018-02-22 13:40 | RAD ---
HISTORY: Asymmetrical swelling, calf tenderness COMPARISONS: April 30, 2015 TECHNIQUE: Multiple transverse and longitudinal ultrasound images were obtained of the right lower extremity from the level of the common femoral vein inferiorly through to the infrapopliteal veins using grayscale, color Doppler, and spectral Doppler imaging with and without compression and with augmentation. Comparison images were obtained of the contralateral common femoral vein. FINDINGS: VEINS: The venous system of the right lower extremity is compressible throughout its course, with normal flow on color Doppler imaging and normal response to augmentation on spectral Doppler imaging. SOFT TISSUES: Unremarkable. OTHER FINDINGS: None. IMPRESSION: NO RIGHT LOWER EXTREMITY DEEP VEIN THROMBOSIS
--- NOTE | 2018-02-22 14:51 | UC ---
Monroe Dent Thomas, scribed for Reyna Waggoner DO on 02/22/18 at 1337 . General HPI - HPI Summary HPI Summary: The patient is a 47 year old male who complains of shortness of breath for the last few weeks. He also complains of swelling to his right lower extremity that began one week ago that extends from his right ankle to his thigh. He has been unable to put on his shoe secondary to the swelling. There is intermittent pain to the right lower extremity. He also complains of pain to his left flank that is similar to prior pain when he had diverticulitis. He denies chest pain, pain to neck/jaw/arm, and urinary symptoms. The patient has three prior surgeries that he does not recall the names of. He says I had vein issues and my veins were collapsed so they were not able to finish. He was due for another surgery but did not follow up. - History of Current Complaint Chief Complaint: UCLowerExtremity Stated Complaint: SWELLING IN LEGS/FEET Hx Obtained From: Patient Onset/Duration: Lasting Weeks, Still Present Timing: Constant Current Severity: Severe Pain Intensity: 10 Associated Signs & Symptoms: Positive: Other - SOB, swelling, left flank pain - Allergy/Home Medications Allergies/Adverse Reactions: Allergies Allergy/AdvReac Type Severity Reaction Status Date / Time Penicillins Allergy Intermediate Hives Verified 02/22/18 12:13 Home Medications: Home Medications Dextroamphetamine/Amphetamine [Adderall 30 mg Tablet] 90 mg PO DAILY WITH MEAL 02/22/18 [History Confirmed 02/22/18] PMH/Surg Hx/FS Hx/Imm Hx Previously Healthy: No - GERD; NEGATIVE: DM - Surgical History Surgical History: Yes Surgery Procedure, Year, and Place: Pilon[place] [facility] [place] from top of head 2004 [place]. right leg vein removal 07/22/2012 [facility] - Family History Known Family History: Positive: Cardiac Disease, Hypertension, Diabetes - Social History Alcohol Use: None Substance Use Type: Cocaine Smoking Status (MU): Light Every Day Tobacco Smoker Amount Used/How Often: 2 cig/day Household Exposure Type: Cigarettes Review of Systems Respiratory: Shortness Of Breath Gastrointestinal: Other - Left flank pain Musculoskeletal: Other: - Swelling, pain to RLE Is Patient Immunocompromised?: No All Other Systems Reviewed And Are Negative: Yes Physical Exam - Summary Physical Exam Summary: Appearance: Well-Appearing, No Pain Distress, Well-Nourished Eyes: conjunctiva clear, no discharge ENT: Hearing grossly normal, no muffled/hoarse voice. TMs normal, negative tonsillar swelling, negative tonsillar exudate, negative trismus. Mild nasal congestion. Neck: Normal, Supple Respiratory/Lung Sounds: He has obvious shortness of breath when swelling standing. Lungs are clear and breath sounds are normal. Mild to moderate respiratory distress, No accessory muscle use Cardiovascular: RRR, No murmur Abdomen: Soft. There is exquisite point tenderness just anterior to the mid axillary line on the LLQ. No guarding, not distended Bowel Sounds: Present Musculoskeletal: He has an impressively swollen right lower extremity with posterior calf tenderness that extends up above the popilteal fossa. He has hardened varicosities of the inner thigh. Neurological: Alert, muscle tone normal Psychiatric: Normal, age appropriate behavior Skin: Normal, Warm, Dry, Normal color Triage Information Reviewed: Yes Vital Signs: Initial Vital Signs Temp 97.8 F 02/22/18 12:05 Pulse 77 02/22/18 12:05 Resp 18 02/22/18 12:05 BP 127/80 02/22/18 12:05 Pulse Ox 98 02/22/18 12:05 Vital Signs Reviewed: Yes Diagnostics - Laboratory Diagnostic Studies Completed/Ordered: Venous Ultrasound Right Lower Extremity. Interpreted by radiologist. IMPRESSION: NO RIGHT LOWER EXTREMITY DEEP VEIN THROMBOSIS. Dr. Waggoner has reviewed this report. Course/Dx - Course Course Of Treatment: The patient is a 47 year old male who complains of shortness of breath for the last few weeks. He also complains of swelling and pain to his right lower extremity that began one week ago that extends from his right ankle to his thigh. He also complains of left flank pain. I checked the patients O2 when he was short of breath, and it was 99. Ultrasound of his right lower extremity is negative for DVT. The patient chose to leave AMA. He was urged to go to the emergency department at any time. - Differential Dx - Multi-Symptom Provider Diagnoses: Dyspnea, edema, phlebitis, abdominal pain Discharge - Sign-Out/Discharge Documenting (check all that apply): Discharge/Admit/Transfer - Discharge Plan Condition: Stable Disposition: AGAINST MEDICAL ADVICE Prescriptions: HYDROcodone/ACETAMIN 5-325 MG* [[place] 5-325 TAB*] 1 tab PO Q6H PRN #6 tab MDD 2 TABS PRN Reason: Pain Patient Education Materials: Acute Abdominal Pain (ED), Dyspnea (ED), Phlebitis (ED) Referrals: Fernando Priest MD [Primary Care Provider] - As Soon As Possible Additional Instructions: The good news is we do not see a deep vein thrombosis. Still, you are leaving against medical advice because we are not certain the cause of your shortness of breath or abdominal pain. You can change your mind and go to the emergency room at any time. You should definitely do that if you develop any new symptoms , such as dizziness, chest pain, nausea, vomiting, pain in left neck/jaw/arm, fever, chills, blood in your stool, or any other symptoms. If you do not go to the emergency department, please do go to see your primary care provider as soon as possible. We are doing a CBC to see if we see any evidence of infection. We will call you if those values are abnormal. ORAL NARCOTIC MEDICATION: You have been given a prescription for pain control. This medication is a narcotic. It's best taken with food, as nausea can result if taken on an empty stomach. Don't operate machinery or drive within six hours of taking this medication. Do not combine this medicine with alcohol, or with any medication which can cause sedation (such as cold tablets or sleeping pills) unless you get permission from the physician. Narcotics tend to cause constipation. If possible, drink plenty of fluids and eat a diet high in fiber and fruits. DO NOT TAKE THIS MEDICATION WITH YOUR CLONAZEPAM. The documentation as recorded by the Monroe connor Thomas accurately reflects the service I personally performed and the decisions made by me, Reyna Waggoner DO.
[2018-02-22 16:07] LABS: ABS Basophils 0.1 10^3/ul (0-0.2); ABS Eosinophils 0.2 10^3/ul (0-0.6); ABS Lymphocytes 2.8 10^3/ul (1.0-4.8); ABS Monocytes 0.7 10^3/ul (0-0.8); ABS Neutrophils 8.1 10^3/ul (1.5-7.7); ABS Nucleated RBC 0 10^3/ul; Eosinophil % 1.3 % (0-6); Hematocrit 43 % (42-52); Hemoglobin 14.4 g/dl (14.0-18.0); Mean Corpuscular HGB Conc 33 g/dl (31-36); Mean Corpuscular Hemoglobin 29 pg (27-31); Mean Corpuscular Volume 87 fL (80-94); Nucleated Red Blood Cells % 0; Platelet Count 297 10^3/ul (150-450); Red Blood Count 4.98 10^6/ul (4.0-5.4); Red Cell Distribution Width 14 % (10.5-15); White Blood Count 11.9 10^3/ul (3.5-10.8)
--- NOTE | 2018-02-23 13:33 | UC ---
- Progress Note Progress Note: February 23, 2018 CBC: WBC elevated at 11.9 Neutrophils: 8.1 CRP: 1.59 Patient left AMA. Call patient to follow up on condition and suggest further evaluation, as needed. Иван Guerrero MD Discharge - Sign-Out/Discharge Documenting (check all that apply): Post-Discharge Follow Up - Discharge Plan Condition: Stable Disposition: AGAINST MEDICAL ADVICE Prescriptions: HYDROcodone/ACETAMIN 5-325 MG* [[place] 5-325 TAB*] 1 tab PO Q6H PRN #6 tab MDD 2 TABS PRN Reason: Pain Patient Education Materials: Acute Abdominal Pain (ED), Dyspnea (ED), Phlebitis (ED) Referrals: Fernando Priest MD [Primary Care Provider] - As Soon As Possible Additional Instructions: The good news is we do not see a deep vein thrombosis. Still, you are leaving against medical advice because we are not certain the cause of your shortness of breath or abdominal pain. You can change your mind and go to the emergency room at any time. You should definitely do that if you develop any new symptoms , such as dizziness, chest pain, nausea, vomiting, pain in left neck/jaw/arm, fever, chills, blood in your stool, or any other symptoms. If you do not go to the emergency department, please do go to see your primary care provider as soon as possible. We are doing a CBC to see if we see any evidence of infection. We will call you if those values are abnormal. ORAL NARCOTIC MEDICATION: You have been given a prescription for pain control. This medication is a narcotic. It's best taken with food, as nausea can result if taken on an empty stomach. Don't operate machinery or drive within six hours of taking this medication. Do not combine this medicine with alcohol, or with any medication which can cause sedation (such as cold tablets or sleeping pills) unless you get permission from the physician. Narcotics tend to cause constipation. If possible, drink plenty of fluids and eat a diet high in fiber and fruits. DO NOT TAKE THIS MEDICATION WITH YOUR CLONAZEPAM. - Billing Disposition and Condition Condition: STABLE Disposition: AMA
== END 2018-02-22 14:20 | disposition left against medical advice (07) ==
LOC: UCEAST 11:41
DX: R06.00 Dyspnea, unspecified (principal); R60.9 Edema, unspecified; I80.9 Phlebitis and thrombophlebitis of unspecified site; R10.32 Left lower quadrant pain; Z53.20 Procedure and treatment not carried out because of patient's decision for unspecified reasons; Z88.0 Allergy status to penicillin; F17.210 Nicotine dependence, cigarettes, uncomplicated
CPT/HCPCS: 36415; 85025; 85652; 86141; 99212; G0463

== ENCOUNTER 2023-09-04 09:59 | Inpatient (IN) ==
[2023-09-04] MEDS ORDERED: Lactated Ringers SEPSIS* BAG 2,120 ML IV ONE (11:16)
[2023-09-04] MEDS ORDERED: cefTRIAXone 2 gm/50 mL D5W 2 GM/50 ML BAG IV ONE (11:16)
[2023-09-04] MEDS ORDERED: Morphine 4 MG/ML VIAL (1 ml) IV PRN (11:35)
[2023-09-04] MEDS ORDERED: Morphine 10 MG/ML VIAL (1 ml) IV ONE (11:35)
[2023-09-04 11:54] LABS: Hematocrit 37.2 % (38-53); Hemoglobin 12.3 g/dL (13.2-16.3); Mean Corpuscular Hemoglobin 28.8 pg (27-33); Mean Corpuscular Hgb Conc 33.1 g/dL (31-36); Mean Platelet Volume 8.2 fL (7.5-11.2); Platelet Count 273 10^3/uL (150-450); Red Blood Count 4.27 10^6/uL (4.06-5.63); Red Cell Distribution Width 13.5 % (12-17); White Blood Count 23.4 10^3/uL (3.6-10.2)
[2023-09-04] MEDS ORDERED: Vancomycin 1,500 MG in NS 0.9% 250 ml 250 ML IVPB SCH (12:00)
[2023-09-04 12:19] LABS: Albumin 3.4 g/dL (3.2-5.2); Calcium 8.6 mg/dL (8.6-10.3); Creatinine, Serum 1.64 mg/dL (0.67-1.17); Globulin 3.5 g/dL (2-4); Potassium 3.7 mmol/L (3.5-5.0); Total Bilirubin 0.6 mg/dL (0.2-1.0); Total Protein 6.9 g/dL (6.4-8.9); eGFR CKD-EPI 50.3 (>60)
[2023-09-04 12:35] LABS: Activated Partial Thrombo Time 27.8 seconds (26.0-38.0); INR 1.35 (0.83-1.13)
[2023-09-04 12:50] LABS: ABS Lymphocytes 0.8 10^3/uL (1.0-4.8); ABS Neutrophils 20.5 10^3/uL (1.5-7.6); ABS Nucleated RBC 0.01 10^3/ul; Lymphocyte % 3.5 %
[2023-09-04] MEDS ORDERED: Iohexol 300 (CONTRAST) 10 ML SDV IV ONE (13:44)
[2023-09-04 13:52] LABS: High Sensitivity Troponin 1 Hr 19 pg/mL (<20)
[2023-09-04] MEDS ORDERED: Vancomycin 1,500 MG in NS 0.9% 250 ml 250 ML IVPB ONE (15:00)
[2023-09-04] MEDS ORDERED: Clindamycin 600 MG/D5W BAG 600 MG/50 ML BAG IV ONE (15:31)
[2023-09-04] MEDS ORDERED: Lidocaine 1% w EPI 1:200,000 SDV 30 ML VIAL ONE (16:01)
[2023-09-04] MEDS ORDERED: Bupivacaine 0.5% SDV PF 30ML VIAL ONE (16:01)
[2023-09-04] MEDS: Lactated Ringers 1000 ml BAG 1,000 ML IV SCH ×4 (16:38→23:26)
[2023-09-04 17:30] LABS: Urine Appearance Clear; Urine Bilirubin Negative (Negative); Urine Blood 1+ (Negative); Urine Color Yellow; Urine Glucose Negative (Negative); Urine Ketones Negative (Negative); Urine Nitrite Negative (Negative); Urine Protein 1+(30 mg/dL) (Negative); Urine Specific Gravity 1.045 (1.002-1.030); Urine Urobilinogen Negative (Negative)
[2023-09-04 17:48] LABS: Urine Bacteria Absent (Absent); Urine Red Blood Cell Trace(0-2/hpf) (Absent); Urine White Blood Cell Trace(0-5/hpf) (Absent)
[2023-09-04] MEDS ORDERED: Acetaminophen IV 1 GM/100ML 1,000 MG/100 ML BAG IV ONE ×2 (17:52→17:53)
[2023-09-04] MEDS ORDERED: Rocuronium 50 mg VIAL 10 mg/ml 5 ml VIAL (50 mg) ONE (18:06)
[2023-09-04] MEDS ORDERED: Phenylephrine IV 10 MG/ML 1 ml VIAL ONE (18:19)
[2023-09-04] MEDS ORDERED: fentaNYL 100 mcg/2 ml 50 MCG/ML VIAL ONE (18:27)
[2023-09-04] MEDS ORDERED: Lidocaine 2% PF 5 ML VIAL ONE (18:27)
[2023-09-04 20:42] LABS: Hematocrit 37.5 % (38-53); Hemoglobin 12.4 g/dL (13.2-16.3); Mean Corpuscular Hemoglobin 29.3 pg (27-33); Mean Corpuscular Hgb Conc 33.1 g/dL (31-36); Mean Corpuscular Volume 88.3 fL (80-97); Platelet Count 271 10^3/uL (150-450); Red Blood Count 4.25 10^6/uL (4.06-5.63); Red Cell Distribution Width 13.5 % (12-17); White Blood Count 21.7 10^3/uL (3.6-10.2)
[2023-09-04] MEDS ORDERED: Piperacillin/Tazobac 3.375 BAG 3.375 GM/100 ML BAG IV ONE ×2 (20:59→21:18)
[2023-09-04 21:00] LABS: Albumin 3.1 g/dL (3.2-5.2); Calcium 8.3 mg/dL (8.6-10.3); Creatinine, Serum 1.66 mg/dL (0.67-1.17); Globulin 3.2 g/dL (2-4); Potassium 4.1 mmol/L (3.5-5.0); Total Bilirubin 0.8 mg/dL (0.2-1.0); Total Protein 6.3 g/dL (6.4-8.9); eGFR CKD-EPI 49.6 (>60)
[2023-09-04] MEDS ORDERED: Albuterol HFA INHALER 8 gm MDI INH PRN (21:00)
[2023-09-04] MEDS ORDERED: Zosyn per Pharmacy NOTE FOLLOW UP SCH (21:00)
[2023-09-04 21:16] LABS: ABS Lymphocytes 0.9 10^3/uL (1.0-4.8); ABS Monocytes 1.6 10^3/uL (0.0-1.1); ABS Neutrophils 19.2 10^3/uL (1.5-7.6); ABS Nucleated RBC 0.01 10^3/ul; Lymphocyte % 4.3 %
[2023-09-04 22:36] LABS: HIV 4th Generation Nonreactive (Nonreactive)
[2023-09-04 22:39] LABS: Hepatitis B Surface Antigen Nonreactive (Nonreactive)
[2023-09-04 22:56] LABS: Hepatitis C Antibody Negative (Negative)
[2023-09-05] MEDS: Lactated Ringers 1000 ml BAG 1,000 ML IV SCH ×4 (00:12→21:40)
[2023-09-05] MEDS: ZOSYN 3.375 GM Q8H per EXTENDED INFUSION IV SCH ×3 (02:37→17:48)
[2023-09-05 11:02] LABS: Calcium 8.2 mg/dL (8.6-10.3); Creatinine, Serum 1.39 mg/dL (0.67-1.17); Magnesium 1.7 mg/dL (1.9-2.7); Potassium 3.7 mmol/L (3.5-5.0)
[2023-09-05] MEDS ORDERED: Bacitracin OINTMENT TUBE ONE (11:43)
[2023-09-05] MEDS ORDERED: Bupivacaine 0.25% SDV 30 ML ONE (11:43)
[2023-09-05] MEDS ORDERED: fentaNYL 100 mcg/2 ml 50 MCG/ML VIAL ONE ×2 (12:07→12:59)
[2023-09-05] MEDS ORDERED: Propofol 10 MG/ML 20 ML BTL ONE ×2 (12:08→12:48)
[2023-09-05] MEDS ORDERED: Lidocaine 2% PF 5 ML VIAL ONE (12:08)
[2023-09-05] MEDS ORDERED: Midazolam 2 mg/2 ml VIAL 1 mg/ml 2 ml VIAL (2 mg) ONE (12:08)
[2023-09-05] MEDS ORDERED: Rocuronium 50 mg VIAL 10 mg/ml 5 ml VIAL (50 mg) ONE (12:08)
[2023-09-05] MEDS ORDERED: Ondansetron 4 mg VIAL 2 MG/ML 2 ml VIAL ONE (12:08)
[2023-09-05] MEDS ORDERED: Phenylephrine 40 mcg/mL 10mL (400mcg) SYRINGE ONE (12:34)
[2023-09-05] MEDS ORDERED: Dexamethasone IV 4 MG/ML VIAL 1 ml VIAL ONE (12:43)
[2023-09-05] MEDS ORDERED: fentaNYL 100 mcg/2 ml 50 MCG/ML VIAL IV PRN (13:04)
[2023-09-05] MEDS ORDERED: Ondansetron 4 mg VIAL 2 MG/ML 2 ml VIAL IV PRN (13:04)
[2023-09-05] MEDS ORDERED: Naloxone 0.4 mg VIAL 0.4 mg/ml 1 ml VIAL IV PRN (13:04)
[2023-09-05 18:04] LABS: Mean Corpuscular Hemoglobin 29.1 pg (27-33); Mean Corpuscular Hgb Conc 33.2 g/dL (31-36); Mean Corpuscular Volume 87.7 fL (80-97); Platelet Count 287 10^3/uL (150-450); Red Blood Count 3.76 10^6/uL (4.06-5.63); Red Cell Distribution Width 13.9 % (12-17); White Blood Count 22.4 10^3/uL (3.6-10.2)
[2023-09-05 19:11] LABS: ABS Lymphocytes 0.6 10^3/uL (1.0-4.8); ABS Monocytes 1.1 10^3/uL (0.0-1.1); ABS Neutrophils 20.8 10^3/uL (1.5-7.6); ABS Nucleated RBC 0.01 10^3/ul; Lymphocyte % 2.6 %
[2023-09-05] MEDS ORDERED: Nicotine GUM 4MG FRUIT FLAVOR PO PRN (21:27)
[2023-09-05] MEDS ORDERED: Amphetamine MIXED SALT 10mgTAB PO PRN (21:50)
[2023-09-05] MEDS: Nicotine PATCH 14 MG/24 HR PATCH TRANSDERM SCH (22:02)
[2023-09-06] MEDS: ZOSYN 3.375 GM Q8H per EXTENDED INFUSION IV SCH ×2 (01:53→09:17)
[2023-09-06] MEDS ORDERED: NS 0.9% 1000 ml BAG 1,000 ML IV SCH (04:30)
[2023-09-06 08:47] LABS: Hematocrit 33.1 % (38-53); Hemoglobin 10.8 g/dL (13.2-16.3); Mean Corpuscular Hemoglobin 28.6 pg (27-33); Mean Corpuscular Hgb Conc 32.6 g/dL (31-36); Mean Corpuscular Volume 87.6 fL (80-97); Mean Platelet Volume 8.3 fL (7.5-11.2); Platelet Count 293 10^3/uL (150-450); Red Blood Count 3.77 10^6/uL (4.06-5.63); Red Cell Distribution Width 13.9 % (12-17); White Blood Count 25.3 10^3/uL (3.6-10.2)
[2023-09-06 08:54] LABS: ABS Basophils 0.1 10^3/uL (0.0-0.1); ABS Lymphocytes 0.8 10^3/uL (1.0-4.8); ABS Monocytes 1.8 10^3/uL (0.0-1.1); ABS Neutrophils 22.6 10^3/uL (1.5-7.6); Lymphocyte % 3.3 %
[2023-09-06] MEDS: Nicotine PATCH 14 MG/24 HR PATCH TRANSDERM SCH (09:20)
[2023-09-06 09:43] LABS: Calcium 8.1 mg/dL (8.6-10.3); Creatinine, Serum 1.04 mg/dL (0.67-1.17); Potassium 4.2 mmol/L (3.5-5.0); eGFR CKD-EPI 86.4 (>60)
[2023-09-06 10:41] VITALS: BP 117/60
== END 2023-09-06 14:30 | disposition left against medical advice (07) | DRG 854 ==
LOC: ED 09:59 → EDHOLD 09:59 → AA 17:12 → SSU 22:03
PROVIDERS: ADMIT Surgery; ATTEND Surgery